=== PATIENT | female | born 1970 | race Caucasian/White ===

== ENCOUNTER 2016-06-30 09:18 | Emergency (ER) | payer BC ==
[2016-06-30 09:38] VITALS: BP 139/90
--- NOTE | 2016-06-30 10:46 | UC ---
UC General HPI - HPI Summary HPI Summary: patient has had 3 days of chills, muscle aches, head ahce, dizzyness, cough, cant take a deep breath, overall malaise. - History of Current Complaint Chief Complaint: UCGeneralIllness Stated Complaint: CHEST CONGESTION, COUGH Time Seen by Provider: 06/30/16 10:32 Hx Obtained From: Patient Onset/Duration: Sudden Onset, Lasting Days Timing: Constant Onset Severity: Moderate Current Severity: Severe Pain Intensity: 8 Associated Signs & Symptoms: Positive: Cough, Dizziness, Fever, Headache - Allergy/Home Medications Allergies/Adverse Reactions: Allergies Allergy/AdvReac Type Severity Reaction Status Date / Time No Known Allergies Allergy Verified 06/30/16 09:32 Home Medications: Home Medications [id number] [Excedrin Migraine] 2 tab PO Q12H PRN 06/30/16 [ History Confirmed 06/30/16] Eletriptan 40 mg (Nf)* [Relpax (NF)] 40 mg PO SEE INSTRUCTIONS PRN 06/30/16 [ History Confirmed 06/30/16] Levothyroxine TAB* [Synthroid TAB*] 75 mcg PO QAM 06/30/16 [History Confirmed ] PMH/Surg Hx/FS Hx/Imm Hx Previously Healthy: Yes Endocrine History Of: Reports: Thyroid Disease - Hypothyroidism Respiratory History Of: Reports: Bronchitis - 3 WEEKS AGO GI/ History Of: Reports: Kidney Stones - HAS 2 CURRENTLY Neurological History Of: Reports: Migraine - 2 PER WEEK - Surgical History Surgical History: Yes Surgery Procedure, Year, and Place: Uterine Ablation, 2012, [place]; Vericose Veins, 2005, [place], Cholecystectomy, 1998, [place], Tonsillectomy, ~1982, [place] - Family History Known Family History: Positive: Hypertension - Social History Alcohol Use: Occasionally Alcohol Amount: 2 PER WEEK Substance Use Type: None Smoking Status (MU): Never Smoked Tobacco Have You Smoked in the Last Year: No - Immunization History Most Recent Influenza Vaccination: Not the 2016/2016 Season Review of Systems Constitutional: Chills, Fatigue Skin: Negative Eyes: Negative ENT: Sore Throat, Ear Ache, Nasal Discharge Respiratory: Shortness Of Breath, Cough Cardiovascular: Negative Gastrointestinal: Negative Genitourinary: Negative Motor: Negative Neurovascular: Negative Musculoskeletal: Arthralgia, Myalgia Neurological: Headache Psychological: Negative All Other Systems Reviewed And Are Negative: Yes Physical Exam Triage Information Reviewed: Yes Appearance: Well-Nourished, Ill-Appearing, Pain Distress Vital Signs: Initial Vital Signs Temp 98.9 F 06/30/16 09:30 Pulse 98 06/30/16 09:30 Resp 16 06/30/16 09:30 BP 139/90 06/30/16 09:30 Pulse Ox 98 06/30/16 09:30 Vital Signs Reviewed: Yes Eye Exam: Normal Eyes: Positive: Conjunctiva Inflamed ENT: Positive: Pharyngeal erythema, Nasal congestion, TM red, Tonsillar swelling Dental Exam: Normal Neck: Positive: Supple, Nontender, Enlarged Nodes @ - right and left submandibular Respiratory Exam: Normal Respiratory: Positive: Chest non-tender, No respiratory distress, No accessory muscle use, Decreased breath sounds, Wheezing, Inspiration Cardiovascular Exam: Normal Cardiovascular: Positive: RRR, No Murmur, Pulses Normal Abdominal Exam: Normal Abdomen Description: Positive: Nontender, No Organomegaly, Soft Bowel Sounds: Positive: Present Musculoskeletal Exam: Normal Musculoskeletal: Positive: Strength Intact, ROM Intact, No Edema Neurological Exam: Normal Neurological: Positive: Alert, Muscle Tone Normal Psychological Exam: Normal Skin Exam: Normal Course/Dx - Course Course Of Treatment: hx obtained, exam performed, flu swab obtained and is negative, treated for bronchitis medications prescribed. - Differential Dx - Multi-Symptom Provider Diagnoses: acute bronchitis. sinusitis. myalgia. SOB, cough Discharge - Discharge Plan Condition: Stable Disposition: HOME Patient Education Materials: Acute Bronchitis (ED) Forms: *School Release Additional Instructions: Take the medication as prescribed. Use the albuterol every 4 hours as needed.
== END 2016-06-30 11:25 | disposition home or self-care (01) ==
LOC: UCCORT 09:18
DX: J20.9 Acute bronchitis, unspecified (principal); J32.9 Chronic sinusitis, unspecified; M79.1 Myalgia; R06.02 Shortness of breath; R05 Cough; E03.9 Hypothyroidism, unspecified; G43.909 Migraine, unspecified, not intractable, without status migrainosus
CPT/HCPCS: 87502; 99212; G0463

== ENCOUNTER 2017-07-28 15:35 | Emergency (ER) | payer BC ==
[2017-07-28 19:10] VITALS: BP 145/93
--- NOTE | 2017-07-28 19:28 | UC ---
FLU HPI - HPI Summary HPI Summary: Pt c/o generalized, malaise, sore throat, fever, chills X 3 days. Pt has history of recurrent mono and did not get flu vaccine this season. - History of Current Complaint Chief Complaint: UCGeneralIllness Stated Complaint: SORE THROAT HEADACHE ACHY FATIGUE Time Seen by Provider: 07/28/17 19:04 Hx Obtained From: Patient Hx Last Menstrual Period: ablation ?: No Onset/Duration: Gradual Onset, Lasting Days, Still Present Severity Currently: Mild Severity Initially: Mild Pain Intensity: 4 Associated Signs & Symptoms: Positive: Fever, Myalgia, Sore Throat Related Hx: Possible Flu/Infectious Exposure - Allergy/Home Medications Allergies/Adverse Reactions: Allergies Allergy/AdvReac Type Severity Reaction Status Date / Time No Known Allergies Allergy Verified 07/28/17 19:09 PMH/Surg Hx/FS Hx/Imm Hx Previously Healthy: Yes - Surgical History Surgical History: Yes Surgery Procedure, Year, and Place: Uterine Ablation, 2012, [place]; Vericose Veins, 2005, [place], Cholecystectomy, 1998, [place], Tonsillectomy, ~1982, [place] - Family History Known Family History: Positive: Hypertension - Social History Occupation: Employed Full-time Lives: With Family Alcohol Use: Occasionally Alcohol Amount: 2 PER WEEK Substance Use Type: None Smoking Status (MU): Never Smoked Tobacco Have You Smoked in the Last Year: No - Immunization History Most Recent Influenza Vaccination: Not the Season Review of Systems Constitutional: Fever, Chills, Fatigue Skin: Negative Eyes: Negative ENT: Sore Throat Respiratory: Negative Cardiovascular: Negative Gastrointestinal: Negative Genitourinary: Negative Motor: Negative Neurovascular: Negative Musculoskeletal: Myalgia Neurological: Negative Psychological: Negative Is Patient Immunocompromised?: No All Other Systems Reviewed And Are Negative: Yes Physical Exam Triage Information Reviewed: Yes Appearance: Ill-Appearing Vital Signs: Initial Vital Signs Temp 98.8 F 07/28/17 19:04 Pulse 88 07/28/17 19:04 Resp 16 07/28/17 19:04 BP 145/93 07/28/17 19:04 Pulse Ox 100 07/28/17 19:04 Eye Exam: Normal ENT: Positive: Nasal congestion Dental Exam: Normal Neck exam: Normal Respiratory Exam: Normal Cardiovascular Exam: Normal Musculoskeletal Exam: Normal Neurological Exam: Normal Psychological Exam: Normal Skin Exam: Normal Flu Course/Dx - Differential Dx/Diagnosis Differential Diagnosis/HQI/PQRI: Influenza, Upper Respiratory Infection Provider Diagnoses: viral syndrome Discharge - Discharge Plan Condition: Stable Disposition: HOME Patient Education Materials: Viral Syndrome (ED) Referrals: Marie Rowan MD [Primary Care Provider] - If Needed
== END 2017-07-28 19:52 | disposition home or self-care (01) ==
LOC: UCCORT 15:35
DX: B34.9 Viral infection, unspecified (principal); Z72.89 Other problems related to lifestyle
CPT/HCPCS: 87502; 87651; 99211; G0463

== ENCOUNTER 2018-06-11 08:22 | Emergency (ER) | payer BC ==
[2018-06-11 08:35] VITALS: BP 134/86
--- NOTE | 2018-06-11 08:48 | UC ---
Throat Pain/Nasal Robin HPI - HPI Summary HPI Summary: sore throat x 2 weeks + sinus pain and pressure, pnd, fever, chills no cough - History of Current Complaint Chief Complaint: UCRespiratory Stated Complaint: ST,CONGESTION Time Seen by Provider: 06/11/18 08:36 Hx Obtained From: Patient Hx Last Menstrual Period: UTERINE ABLASION ?: No Onset/Duration: Gradual Onset, Lasting Weeks - 2, Still Present Severity: Moderate Pain Intensity: 5 Cough: Nonproductive Associated Signs & Symptoms: Positive: Sinus Discomfort, Nasal Discharge, Fever. Negative: Dysphagia, FB Sensation, Drooling, Wheezing, Hoarseness, Vomiting, Rash - Allergies/Home Medications Allergies/Adverse Reactions: Allergies Allergy/AdvReac Type Severity Reaction Status Date / Time No Known Allergies Allergy Verified 06/11/18 08:28 PMH/Surg Hx/FS Hx/Imm Hx Previously Healthy: Yes Endocrine History: Thyroid Disease Neurological History: Migraine - Surgical History Surgical History: Yes Surgery Procedure, Year, and Place: Uterine Ablation, 2012, [place]; Vericose Veins, 2005, [place], Cholecystectomy, 1998, [place], Tonsillectomy, ~1982, [place] - Family History Known Family History: Positive: Hypertension - Social History Alcohol Use: Occasionally Alcohol Amount: 2 PER WEEK Substance Use Type: None Smoking Status (MU): Never Smoked Tobacco Have You Smoked in the Last Year: No - Immunization History Most Recent Influenza Vaccination: Not the 2015/2016 Season Review of Systems All Other Systems Reviewed And Are Negative: Yes Constitutional: Positive: Fever, Chills, Fatigue Skin: Positive: Negative Eyes: Positive: Negative ENT: Positive: Sore Throat, Nasal Discharge, Sinus Congestion, Sinus Pain/ Tenderness Respiratory: Positive: Negative Cardiovascular: Positive: Negative Is Patient Immunocompromised?: No Physical Exam Triage Information Reviewed: Yes Appearance: Well-Appearing, No Pain Distress, Well-Nourished Vital Signs: Initial Vital Signs Temp 97.9 F 06/11/18 08:29 Pulse 79 06/11/18 08:29 Resp 17 06/11/18 08:29 BP 134/86 06/11/18 08:29 Pulse Ox 96 06/11/18 08:29 Vital Signs Reviewed: Yes Eye Exam: Normal Eyes: Positive: Conjunctiva Clear ENT: Positive: Normal ENT inspection, Hearing grossly normal, Nasal congestion, Nasal drainage, Sinus tenderness. Negative: TM bulging, TM dull, TM red Neck: Positive: Supple, Nontender, No Lymphadenopathy Respiratory: Positive: Chest non-tender, Lungs clear, Normal breath sounds Cardiovascular: Positive: RRR, No Murmur, Pulses Normal Skin Exam: Normal Throat Pain/Nasal Course/Dx - Differential Dx/Diagnosis Provider Diagnosis: Sinusitis Discharge - Sign-Out/Discharge Documenting (check all that apply): Patient Departure All imaging exams completed and their final reports reviewed: No Studies - Discharge Plan Condition: Stable Disposition: HOME Prescriptions: Amoxicillin/Clavulanate TAB* [Augmentin TAB 875*] 875 mg PO BID #20 tab Patient Education Materials: Sinusitis (ED) Referrals: Keyanna Roy NP [Primary Care Provider] - If Needed - Billing Disposition and Condition Condition: STABLE Disposition: Home
== END 2018-06-11 08:52 | disposition home or self-care (01) ==
LOC: UCCORT 08:22
DX: J32.9 Chronic sinusitis, unspecified (principal)
CPT/HCPCS: 87651; 99212; G0463